=== PATIENT | male | born 1965 | race Caucasian/White ===

== ENCOUNTER → 2020-03-22 15:46 | Outpatient (CLI) | payer BC, SELFPAY ==
--- NOTE | ~2020-03-22 | XR_ITS ---
XR knee LT 3V DATE: 03/22/2020 16:10 INDICATION: Left knee pain TECHNIQUE: [place] and standing AP and lateral views COMPARISON: None FINDINGS: Mild to moderate osteopenia is suggested. Minimal osteoarthritis of the patellofemoral joint. No fracture or dislocation or joint effusion. No periosteal reaction or bone destruction. Probable benign fibrous cortical defect of the distal medial femoral diaphysis. Joint spaces appear relatively preserved. No radiopaque intra-articular loose body or chondrocalcinos is. IMPRESSION: Probable benign fibrous cortical defect of the distal medial femoral shaft Minimal osteoarthritis Reviewed, dictated and finalized at location B. [facility] CONSULTANT IMPRESSION: Probable benign fibrous cortical defect of the distal medial femora l shaft Minimal osteoarthritis
== END ==
PROVIDERS: PCP Family Medicine; Visit Provider Nurse Practitioner Family
DX: M25.562 Pain in left knee (principal); M17.12 Unilateral primary osteoarthritis, left knee
CPT/HCPCS: 73562